=== PATIENT | female | born 2000 | race African-American/Black ===

== ENCOUNTER 2024-09-26 13:37 | Emergency (ER) | payer OTHER ==
[~2024-09-26] VITALS: Ht 177.8 cm; Wt 195.1 kg
[2024-09-26 14:00] VITALS: PULSE 84; RESP 20; TEMP 97.4; O2SAT 96
[2024-09-26] MEDS ORDERED: KETOROLAC TROMETHAMINE 30 MG/ML VIAL ONE (14:19)
[2024-09-26] MEDS: KETOROLAC TROMETHAMINE 30 MG/ML VIAL IM STA (14:31)
[2024-09-26] MEDS ORDERED: ULTRAM 50MG50 MG PO (14:51)
== END 2024-09-26 14:58 | disposition home or self-care (01) ==
LOC: FSED 14:00
DX: N93.8 Other specified abnormal uterine and vaginal bleeding (principal); R10.30 Lower abdominal pain, unspecified; E28.2 Polycystic ovarian syndrome
CPT/HCPCS: 81003; 85025; 99284; J1885